=== PATIENT | male | born 1955 | race Caucasian/White ===

== ENCOUNTER 2020-10-21 14:27 | Emergency (ER) | payer SELFPAY ==
[~2020-10-21] VITALS: Ht 188 cm; Wt 87.0 kg
--- NOTE | 2020-10-21 15:07 | NUR ---
PT AMBULATORY TO ROOM 13 W/ C/O BRUISE TO R CHEST APPEARED 2 DAYS AGO. PT STATES HE DID NOT DO ANYTHING STRENOUS, HAD NO TRAUMA TO AREA, DID NOT HIT OR LIFT ANYTHING HEAVY. PT DENIES CP/SOB. PT ALSO NOTICED TO HAVE EXTREMELY ELEVATED BP AT 213/146. PT STATES HE DOES NOT SEE A PCP NOR GOES TO THE DR UNKNOWN IF PT HAS HTN. PT RESTING ON GURNEY. NADN. MONITORS APPLIED. WARM BLANKET PROVIDED. CALL LIGHT IN REACH. ERP DR. GARCIA AT BEDSIDE FOR EVAL.
[2020-10-21 15:13] LABS: BASOPHILS % (AUTO) 1 % (0-1); EOSINOPHILS % (AUTO) 2 % (1-7); LYMPHOCYTES % (AUTO) 20 % (22-44); MEAN CORPUSCULAR HEMOGLOBIN 29.9 pg (27.5-34.5); MEAN PLATELET VOLUME 7.7 fL (7.4-10.4); MONOCYTES % (AUTO) 4 % (2-9); NEUTROPHILS % (AUTO) 73 % (42-75); PLATELET COUNT 259 x10^3/uL (130-400); RED BLOOD COUNT 4.49 x10^6/uL (4.38-5.82); RED CELL DISTRIBUTION WIDTH 14.5 % (9.4-14.8)
[2020-10-21] MEDS ORDERED: LISINOPRIL 10 MG TABLET ONE (15:21)
[2020-10-21 15:25] LABS: ALANINE AMINOTRANSFERASE 18 U/L (12-78); ALBUMIN 3.2 g/dL (3.4-5.0); ANION GAP 6 mmol/L (5-15); CALCIUM 8.7 mg/dL (8.5-10.1); CHLORIDE 110 mmol/L (98-107); CREATININE 2.07 mg/dL (0.7-1.3)
[2020-10-21 15:27] LABS: ALKALINE PHOSPHATASE 96 U/L (45-117); BILIRUBIN,TOTAL 0.2 mg/dL (0.2-1.0); TOTAL PROTEIN 8.2 g/dL (6.4-8.2)
[2020-10-21] MEDS ORDERED: LISINOPRIL 10 MG TABLET PO ONE (15:30)
--- NOTE | 2020-10-21 15:52 | NUR ---
PT RESTING ON GURNEY. NADN. [place].
--- NOTE | 2020-10-21 16:18 | NUR ---
TASK RN NOTE: ERMD AWARE OF BP AT THIS TIME. NO NEW ORDERS. PT DENIES PAIN AT THIS TIME. CHART UP FOR RECHECK.
[2020-10-21 16:59] VITALS: BP 206/124
--- NOTE | 2020-10-21 16:59 | NUR ---
PER ERP DR. JOSE ABEL TO SEND PT HOME W/ BP 202/122. PT WILL BE SENT HOME W/ RX FOR BP.
== END 2020-10-21 17:12 | disposition home or self-care (01) ==
LOC: ED 17:00
DX: S20.211A Contusion of right front wall of thorax, initial encounter (principal); N28.9 Disorder of kidney and ureter, unspecified; I10 Essential (primary) hypertension; F17.200 Nicotine dependence, unspecified, uncomplicated; X58.XXXA Exposure to other specified factors, initial encounter; Y93.89 Activity, other specified; Y92.89 Other specified places as the place of occurrence of the external cause; Y99.8 Other external cause status
CPT/HCPCS: 36415; 80053; 82962; 85025; 93005; 99285